=== PATIENT | female | born 1965 | race Caucasian/White ===

== ENCOUNTER → 2017-08-20 | Outpatient (CLI) | payer OTHER ==
[~2017-08-20] MED LIST: ACET-458 PO; ALBU8.5H8 INH; DIAZ5TAB4 PO; HYDR25TA6 PO; LEVO50TA5 PO; ROPI0.2537 PO; SERT50TA5 PO
[2017-08-20 10:20] LABS: ASPARTATE AMINO TRANSFERASE 12 U/L (15-37); BLOOD UREA NITROGEN 7 mg/dL (7-18)
== END ==
LOC: STAR 09:12
PROVIDERS: ATTEND Obstetrics & Gynecology Female Pelvic Medicine and Reconstructive Surgery
DX: Z01.818 Encounter for other preprocedural examination (principal); N92.6 Irregular menstruation, unspecified; N94.6 Dysmenorrhea, unspecified; R10.2 Pelvic and perineal pain; N81.10 Cystocele, unspecified
CPT/HCPCS: 36415; 80053

== ENCOUNTER 2017-08-25 10:52 | Day surgery (SDC) | payer OTHER ==
[~2017-08-25] VITALS: Ht 162.6 cm; Wt 66.8 kg
[~2017-08-25 10:52] MED LIST changes: +BUPIVACAINE/PF 0.25% ONE; +EPINEPHRINE 1 MG/ML, 1ML ONE; +NEOMY/POLYMYXIN B GU IRR. 1 ML IRRIG ONE
[2017-08-25] MEDS ORDERED: LACTATED RINGERS 1,000 ML IV SCH (12:14)
[2017-08-25] MEDS ORDERED: LIDOCAINE 1%, 2ML ONE (12:18)
[2017-08-25] MEDS ORDERED: LIDOCAINE 1%, 2ML SQ PRN (12:30)
[2017-08-25] MEDS ORDERED: MIDAZOLAM 1 MG/ML, 2ML ONE ×2 (13:02→14:41)
[2017-08-25] MEDS ORDERED: FENTANYL PF 250 MCG/5ML ONE ×2 (13:03→14:41)
[2017-08-25] MEDS ORDERED: ONDANSETRON 2MG/ML, 2ML ONE ×2 (13:04→14:41)
[2017-08-25] MEDS ORDERED: CEFAZOLIN 1,000 MG ONE ×2 (13:04→14:41)
[2017-08-25] MEDS ORDERED: ROCURONIUM 10 MG/ML,10ML ONE ×2 (13:04→14:41)
[2017-08-25] MEDS ORDERED: GLYCOPYRROLATE 0.2MG/1ML, 5ML ONE (13:04)
[2017-08-25] MEDS ORDERED: SUCCINYLCHOLINE 20 MG/ML, 10ML ONE ×2 (13:04→14:41)
[2017-08-25] MEDS ORDERED: NEOSTIGMINE 1 MG/ML, 10ML ONE (13:04)
[2017-08-25] MEDS ORDERED: PROPOFOL 10 MG/ML, 20ML ONE ×2 (13:04→14:41)
[2017-08-25] MEDS ORDERED: DEXAMETHASONE 4 MG/ML, 1ML ONE ×2 (13:04→14:41)
[2017-08-25] MEDS ORDERED: LIDOCAINE 4%, 4 ML SYR/CANN TP ONE (13:05)
[2017-08-25] MEDS ORDERED: hydrALAzine 20 MG/ML, 1ML IV PRN (14:30)
[2017-08-25] MEDS ORDERED: HYDROcodone/APAP 7.5-325MG/15ML UDC PO PRN (14:30)
[2017-08-25] MEDS ORDERED: ONDANSETRON 2MG/ML, 2ML IVPush PRN (14:30)
[2017-08-25] MEDS ORDERED: PROMETHAZINE 25 MG/ML, 1ML IV PRN (14:30)
[2017-08-25] MEDS ORDERED: LABETALOL 5MG/ML, 20ML IV PRN (14:30)
[2017-08-25] MEDS ORDERED: HYDROmorphone 1 MG/ML, 1ML IV PRN (14:30)
[2017-08-25] MEDS ORDERED: OXYcodone 5 MG/5 ML ORAL.SOL UDC PO PRN (14:30)
[2017-08-25] MEDS ORDERED: ACETAMINOPHEN 325 MG TABLET PO PRN (14:30)
[2017-08-25] MEDS ORDERED: LABETALOL 5MG/ML 40ML VIAL ONE (14:41)
[2017-08-25] MEDS ORDERED: hydrALAzine 20 MG/ML, 1ML ONE (14:41)
[2017-08-25] MEDS ORDERED: BUPIVACAINE/PF-EPI 0.25% 1:200K INFIL ONE ×2 (15:18→15:20)
[2017-08-25] MEDS ORDERED: NEOMY/POLYMYXIN B GU IRR. 1 ML IRRIG ONE (15:20)
[2017-08-25] MEDS ORDERED: HYDROmorphone 1 MG/ML, 1ML ONE (15:28)
[2017-08-25] MEDS ORDERED: LIDOCAINE-MPF 2% ,5ML ONE (15:38)
[2017-08-25] MEDS ORDERED: ACETAMINOPHEN 650 MG/20.3 ML UDC ONE (16:13)
[2017-08-25] MEDS ORDERED: FENTANYL PF 100 MCG/2ML ONE (16:14)
[2017-08-25] MEDS ORDERED: OXYcodone 5 MG/5 ML ORAL.SOL UDC ONE (16:14)
[2017-08-25] MEDS: FENTANYL PF 100 MCG/2ML IV PRN ×2 (16:15→16:40)
[2017-08-25] MEDS ORDERED: KETOROLAC 30 MG/1 ML ONE (16:47)
[2017-08-25] MEDS ORDERED: KETOROLAC 30 MG/1 ML IV PRN (17:00)
== END 2017-08-25 18:36 ==
LOC: OUT 10:52
PROVIDERS: ATTEND Obstetrics & Gynecology Female Pelvic Medicine and Reconstructive Surgery
DX: D25.9 Leiomyoma of uterus, unspecified (principal); N92.1 Excessive and frequent menstruation with irregular cycle; N94.6 Dysmenorrhea, unspecified; N94.10 Unspecified dyspareunia; N81.89 Other female genital prolapse; N39.3 Stress incontinence (female) (male); J44.9 Chronic obstructive pulmonary disease, unspecified; I10 Essential (primary) hypertension; Z87.891 Personal history of nicotine dependence; Z88.0 Allergy status to penicillin; E03.9 Hypothyroidism, unspecified; Z88.5 Allergy status to narcotic agent
CPT/HCPCS: 57265; 57288; 58552; 88307; C1771; J0171; J0330; J0360; J0690; J1100; J1170; J1885; J2250; J2405; J2704; J3010; J3490; J7120; J2710